=== PATIENT | male | born 1965 | race Caucasian/White ===

== ENCOUNTER 2019-09-20 22:01 | Observation (INO) | payer BC ==
[2019-09-20 22:33] LABS: Absolute Lymphocytes (CBC) 1.1 K/uL (0.7-4.9); Lymphocytes % 5.7 % (15.3-44.8)
[2019-09-20] MEDS ORDERED: MORPHINE 2 MG/ML SYR ONE (22:36)
[2019-09-20] MEDS ORDERED: ONDANSETRON 4 MG/2 ML VIAL ONE (22:36)
[2019-09-20] MEDS ORDERED: NA CHLORIDE 0.9% 1,000 ML ONE (22:37)
[2019-09-20 22:38] LABS: Basophils % 0.5 % (0-1.3); Hematocrit 44.6 % (39.6-49.0); MPV 8.3 fL (7.6-11.3); RBC Red Blood Cell Count 4.89 M/uL (4.33-5.43)
[2019-09-20 22:51] LABS: Albumin 4.4 g/dL (3.4-5.0); Bilirubin Direct 0.2 mg/dL (0-0.2); Bilirubin Total 0.8 mg/dL (0.2-1.0); Potassium 3.8 mmol/L (3.5-5.1); Protein, Total 8.1 g/dL (6.4-8.2)
[2019-09-21] MEDS ORDERED: PIPER/TAZO/NS 3.375gm 3.375 GM/100 ML BAG ONE (01:37)
[2019-09-21 02:07] LABS: Urine Blood TRACE (NEG); Urine Glucose NEGATIVE (NEG); Urine Protein NEGATIVE (NEG)
[2019-09-21 02:13] LABS: Urine Bacteria <20 /HPF (NONE SEEN); Urine Culture Reflex Order NOT NEEDED; Urine RBC <5 /HPF (NONE SEEN)
[2019-09-21] MEDS ORDERED: ACETAMINOPHEN 500 MG TAB PO PRN (02:16)
[2019-09-21] MEDS ORDERED: ONDANSETRON 4 MG/2 ML VIAL IV PRN (02:16)
[2019-09-21] MEDS ORDERED: ACETAMINOPHEN 500 MG TAB ONE (03:42)
[2019-09-21 03:43] VITALS: BMI 29.9
[2019-09-21] MEDS: D5 0.45 NS 1,000 ML IV SCH ×2 (04:23→17:53)
[2019-09-21 05:36] LABS: Protime INR 1.07
[2019-09-21] MEDS ORDERED: PIPERACIL/TAZO 3.375 GM VIAL IV ONE (06:30)
[2019-09-21] MEDS ORDERED: NA CHLORIDE 0.9% 100 ML ONE (06:32)
[2019-09-21] MEDS: MORPHINE 4 MG/ML SYR IV PRN ×2 (06:41→18:54)
[2019-09-21] MEDS ORDERED: PIPER/TAZO/NS 3.375gm 3.375 GM/100 ML BAG IVPB SCH (07:00)
[2019-09-21] MEDS ORDERED: Ringers Lactate 1,000 ML IV ONE ×2 (09:41→15:28)
[2019-09-21] MEDS ORDERED: FENTANYL CITR 100 MCG/2 ML ONE ×2 (10:40→14:47)
[2019-09-21] MEDS ORDERED: GLYCOPYRROLATE 0.2 MG/ML SYR ONE (10:41)
[2019-09-21] MEDS ORDERED: ONDANSETRON 4 MG/2 ML VIAL ONE ×2 (10:41→14:48)
[2019-09-21] MEDS ORDERED: propofoL 200 MG/20 ML VIAL IV ONE ×2 (10:41→14:47)
[2019-09-21] MEDS ORDERED: MIDAZOLAM HCL 2 MG/2 ML INJ ONE ×3 (10:41→14:47)
[2019-09-21] MEDS ORDERED: dexAMETHasone 4 MG/ML VIAL ONE (10:42)
[2019-09-21] MEDS ORDERED: ROCURONIUM 50 MG/5 ML VIAL IV ONE (10:42)
[2019-09-21] MEDS ORDERED: KETOROLAC 30 MG/ML INJ ONE (10:42)
[2019-09-21] MEDS ORDERED: NEOSTIGMINE 1 MG/ML -5 ML ONE (10:42)
[2019-09-21] MEDS ORDERED: LIDOCAINE 1% MPF 5 ML VIAL ONE ×2 (10:42→14:47)
[2019-09-21] MEDS ORDERED: MORPHINE 10 MG/ML VIAL ONE (11:25)
--- NOTE | 2019-09-21 11:28 | RAD REPORT ---
EXAM DESCRIPTION: Jaskaran Single View09/21/2019 2:32 am CLINICAL HISTORY: Abdominal pain COMPARISON: none FINDINGS: The lungs appear clear of acute infiltrate. The heart is normal size IMPRESSION: No acute abnormalities displayed
--- NOTE | 2019-09-21 12:38 | RAD REPORT ---
EXAM DESCRIPTION: CT - Abdomen Pelvis W Contrast - 09/21/2019 3:02 am CLINICAL HISTORY: The patient is 53 years old and is Male; RLQ abdomen pain TECHNIQUE: Axial computed tomography images of the abdomen and pelvis with intravenous contrast. S agittal and coronal reformatted images were created and reviewed. This CT exam was performed using one or more of the following dose reduction techniques: automated exposure control, adjustment of t he mA and/or kV according to patient size, and/or use of iterative reconstruction technique. DLP: 1679 mGy*cm COMPARISON: None. FINDINGS: LUNG BASES: Lung bases are clear. HEART: Visualized heart is normal. ABDOMEN: LIVER: Unremarkable. No mass. GALLBLADDER AND BILE DUCTS: Unremarkable. No calcified stones. No ductal dilation. PANCREAS: Unremarkable. No mass. No ductal dilation. SPLEEN: Unremarkable. No splenomegaly. ADRENALS: Unremarkable. No mass. KIDNEYS AND URETERS: Subcentimeter left renal hypodensities, too small to characterize by CT crite teddy. No hydronephrosis. STOMACH AND BOWEL: Enteric contrast in the stomach, small bowel and proximal large bowel. PELVIS: APPENDIX: Diffuse thickening of the appendix measuring up to 1.2 cm. Periappendiceal fat stranding is present. BLADDER: Unremarkable. No mass. REPRODUCTIVE: Unremarkable as visualized. ABDOMEN and PELVIS: INTRAPERITONEAL SPACE: No free air. No significant fluid collection. BONES/JOINTS: Small retrolisthesis of L4 on L5. No acute fracture. No dislocation. SOFT TISSUES: Fat-containing right inguinal hernia. Small fat-containing umbilical hernia. VASCULATURE: Trace scattered vascular calcifications. No abdominal aortic aneurysm. LYMPH NODES: Unremarkable. No enlarged lymph nodes. IMPRESSION: Acute appendicitis without perforation or abscess formation. THIS REPORT CONTAINS FINDINGS THAT MAY BE CRITICAL TO PATIENT'S CARE: The findings were verbally discussed via telephone conference with YADI DASILVA by Dr. Knowles on 1:26 AM CDT. The results were acknowledged and understood. Electronically signed by: Deven Knowles DO 09/21/2019 1:27 AM CDT Due to temporary technical issues with the PACS/Fluency reporting system, reports are being signed by the in house radiologist without review as a courtesy to ensure prompt reporting. The interpreting r adiologist is fully responsible for the content of the report.
--- NOTE | 2019-09-21 13:03 | P.BOP ---
Preoperative diagnosis: Acute appendicitis Postoperative diagnosis: same plus urinary retention Primary procedure: Laparoscopic appendectomy Estimated blood loss: <10cc Specimen: appendix Findings: urinary retention Anesthesia: General Complications: None Drain(s): SLIM drain Transferred to: Recovery Room Condition: Good
--- NOTE | 2019-09-21 14:05 | EKG ---
Test Date: 2019-09-21 Test Time: 01:52:05 Forklift Wheel Loader: RR MEASUREMENT RESULTS: Intervals: Rate: 93 DC: 198 QRSD: 162 QT: 384 QTc: 477 [place]: P: 61 DC: 198 QRS: 101 T: 0 INTERPRETIVE STATEMENTS: Normal sinus rhythm Rightward axis Left bundle branch block Abnormal ECG No previous ECG available for comparison Electronically Signed On 09-21-19 14:05:06 CDT by Kurtis Marlow
[2019-09-21] MEDS ORDERED: NA CHLORIDE 0.9% 1,000 ML ONE (14:20)
[2019-09-21] MEDS ORDERED: LIDOCAINE VISCOUS 2% SOLN 15 ML UDC ONE (14:32)
[2019-09-21] MEDS ORDERED: TAMSULOSIN 0.4 MG SR CAP PO SCH (15:00)
[2019-09-21] MEDS: PIPER/TAZO/NS 3.375gm 3.375 GM/100 ML BAG IVPB SCH (15:09)
[2019-09-21] MEDS ORDERED: LIDOCAINE 1% MPF 30 ML VIAL ONE (16:10)
--- NOTE | 2019-09-21 18:26 | RAD REPORT ---
EXAM DESCRIPTION: RAD - Fluoroscopy <1 Hour - 09/21/2019 5:46 pm CLINICAL HISTORY: Cystogram FINDINGS: Fluoroscopy time 7 seconds. Five fluoroscopic spot images obtained. Procedure performed by Dr. Ardon. Please refer to his report for findings A drain overlies the right abdomen/pelvis
--- NOTE | 2019-09-21 20:12 | CON ---
History Of Present Illness: A 53-year-old gentleman with a long history of decreased urinary flow, which sounds like a urethral stricture. He says there may have been some trauma there, he used to ride horses and so forth on motorcycles, but does not remember a specific incident. He had had some blood from the urethra before. He saw a urologist some 9 years ago and did a bladder ultrasound, but no invasive cystoscopy. He had an appendectomy done today emergently by Dr. Torres and had difficulty with the Stephenson catheter placement, so I was called. He was able to do the appendectomy without a Stephenson catheter. The bladder did appear to be full. He said, in recovery room he was unable to void. We checked a bladder ultrasound while he remained in the recovery room, he had about 700 mL. We tried a flexible cystoscopy, just saw some false passages in the bulbar urethra, does not see the urethra for sure, so we would take him back to do a cystoscopy, possible DVIU and Stephenson catheter placement. All the general information, alternatives, and risks were reviewed the because the patient has anesthesia. She has given permission to proceed. Past Medical History: Hypertension. Allergies: NO KNOWN DRUG ALLERGIES. Medications: For hypertension. Past Surgical History: Left hernia repair, appendectomy, and clavicle fracture surgery. Review of Systems: Noncontributory. Physical Examination: General: Patient was afebrile, stable. HEENT: Atraumatic, normocephalic. Lungs: Clear. Heart: Regular rate and rhythm. Abdomen: Soft, nontender. Has a dressing on the right lower quadrant area. Genitourinary: Phallus did show some blood at the meatus. The testicles well descended, benign. Extremities: Legs normal range of motion. Laboratory Data: White count 19.6, H and H 15 and 44, platelets 226. Coags normal. Chemistry; sodium 138, potassium 3.8, chloride 108, carbon dioxide 22, BUN 20, creatinine 1.3, GFR 59, glucose 167, calcium 9.5. Urine pretty much negative, pH 6.0. Assessment And Plan: Difficult catheter placement, some Stephenson trauma. Possible bulbar urethral stricture. The patient needs a formal cystoscopy, direct vision internal urethrotomy, and Stephenson placement. All the general information, alternatives, and risks were given to the , the spouse and we received informed consent from her to proceed. ANTONIO/JELENA Voice ID: [id number] Report ID: [id number] COLE
--- NOTE | 2019-09-21 20:51 | OP ---
Date of Procedure: 09/21/2019 Surgeon: Rivera Torres MD Preoperative Diagnosis: Acute appendicitis. Postoperative Diagnoses: Acute appendicitis plus urinary retention. Procedure: Laparoscopic appendectomy. Anesthesia: General plus local. Findings: Patient had acute appendicitis. The patient had some scar tissues at the left sigmoid are a region and once again we encouraged patient to have a colonoscopy whenever it is safe in the next f ew weeks and also we noticed that when the Stephenson has been inserted, the Stephenson does not pass the area of the prostate, we abort that area and decided to do the surgery without the Stephenson, but it still, at his age, have to be addressed. Once I put the cameras inside and looked at the bladder I noticed th e bladder have distended even though I noticed from the nurse in the recovery that he claimed that he went to urinate before, means that he had some urinary retention. We have a urologist in the area j ust doing some of the cases, we will ask him to take a look at him since the urinary retention may ef fect him in the future and he has to rule out any prostate issues. It is not related to the appendix , but it is a finding that we have now during diagnostic lap. I did not see any tumors from the area of the bladder inside and the trocars were away from the area of the bladder. Complications: None. Indications: This is the case of a 53-year-old patient who comes to us with an acute appendicitis. The benefits, alternatives, and risks of laparoscopic, possible open appendectomy were fully explaine d, which include but are not limited to infection, bleeding, damage to adjacent structures, anesthesi a complications, [place], and even . He also understands this may not relieve any symptoms, he might need more than one surgical intervention. He understood, signed the consent. Description Of Procedure: Patient was brought to the operating room, placed in supine position. Ane sthesia was done without complication. Abdominal area was prepped and draped in a sterile fashion. A Stephenson was attempted, but not done. That procedure was aborted, so we just prepped the abdomen in t he usual sterile fashion. We made an incision in the infraumbilical region after injecting with loca l anesthetic. An incision was carried down to the fascia, which was opened under direct vision. Per itoneum was encountered, opened under direct vision. Vicryl #1 placed inside the fascia. Arvind tro car was carefully introduced, no bleeding was obtained. I put the cameras inside, noticed that the a olvin of the pelvis shows acute appendicitis, also shows the patient had some adhesions in the sigmoid area, patient has no previous surgery there and also patient has distended bladder. No bleeding. At that moment, I proceeded to put a trocar in the suprapubic area under direct visualization above the area of the suprapubic area right between that and the periumbilical region to avoid any bleeding ne ar the bladder. I put another 5 mm trocar in the left lower quadrant once again under direct visuali zation. This allowed me to take a look at the area of the appendix, placed the patient in Trendelenb urg position. The base of the appendix seems to be spared from the inflammation, so we created a win alma delia in the base of the appendix, transected that with an Endo MONTRELL 45 mm 3.5, and the mesoappendix wit h the Endo-MONTRELL 45 mm 2.5. There was some inflammation around the appendix, I feel safer to leaving a SLIM drain over that region. So the SLIM drain was left there exiting to one of the trocar sites, secur ed in place with 3-0 nylon that would correct rest of the infection patient has in that area. At nicole t moment, I proceeded to inspect the area, no bowel leak, no bleeding. The area of the pelvis looks intact. Bladder is still distended, but no evidence of any leakage or any blood and the area of the sigmoid colon had some adhesions in that area, even though it looks soft, it should be looked at it t hrough the colonoscope. Patient tolerated the procedure well. The cameras were removed, peritoneum was removed, and the fascia was closed to #1 Vicryl. Irrigated subcutaneous tissues, closed that wit h 3-0 chromic and the skin was approximated with priscila and the SLIM drain was secured in place with 3 -0 nylon. Patient tolerated the procedure well. I discussed the case with Dr. Gallego, the urologist, and discussed the findings that we have in that area. The Stephenson was not inserted. He asked me to g priscilla the Flomax to this patient and also he is going to evaluate the patient. Depends if he urinated himself, then it is going to be elective, but something have to be checked in that area, so we know i t cannot be normally working, but at his age once again prostate enlargement may be one of the cause in the differential diagnosis. MARIA ANTONIA Voice ID: [id number] Report ID: [id number]
--- NOTE | 2019-09-21 21:57 | HP ---
Date of Admission: 09/21/2019 Reason For Service: Appendicitis. History Of Present Illness: This is a case of a 53-year-old patient, who comes to us complaining of right lower quadrant tenderness and tenderness for 1 day of duration. He denies any dysuria, hematur ia, hematochezia, or melena. He denies any trauma. He denies any recent travelling out of the [facility]. He denies any family member sick at home. Patient has not had a colonoscopy done, although he d id a Cologuard recently since he did not have time yet to do the colonoscopy, although he was explain ed the importance of screening colonoscopy. There is no other family member sick at home and there i s no recent traveling out of the country. Allergies: NONE. Medical Problems: Hypertension. Social History: He does not smoke. He does not drink alcohol. Family History: Noncontributory. Review of Systems: Ten points are otherwise unremarkable. Physical Examination: General: Patient is awake and alert. HEENT: Pupils are equal and reactive, anicteric. Neck: Supple. Chest: Clear. Abdomen: Right lower quadrant tenderness with Rovsing sign positive. Genitalia: Deferred. Rectal: Deferred. Extremities: Good capillary refill. Neurologic: Cranial nerves 2 through 12 grossly within normal limits. Laboratory Data: WBC count is 19.6 with hemoglobin of 15 and platelets of 226. INR is 1.07. Potass ium is 3.8, chloride is 108, glucose 167. CAT scan of abdomen and pelvis, official report is still p ending, although preliminary shows acute appendicitis by Dr. Deven Knowles. Assessment And Plan: This is a 53-year-old patient with acute appendicitis. The benefits, alternati ves, and risks of laparoscopic, possible open appendectomy were fully explained to the patient, which include but are not limited to infection, bleeding, damage to adjacent structures, anesthesia compli cation, [place], and even . He also understands this may not relieve his symptoms. He might need mo re than one surgical intervention. He understand also the importance of following up with his primar y doctor for his medical disease, also for his colonoscopy timing. BERONICA/JELENA Voice ID: [id number]
[2019-09-21] MEDS: HYDROCODONE/APAP 7.5/325 MG TAB PO PRN (22:57)
--- NOTE | 2019-09-21 23:12 | OP ---
Surgeon: Diamond Gallego MD Preoperative Diagnosis: Traumatic urethra, urethral stricture most likely. Postoperative Diagnosis: Traumatic urethra, urethral stricture most likely. Unable to find urethral lumen in the traumatic area, very inflamed and appears to be at 12 o'clock ar ea, but the guidewire would not go. Procedure: 1.Cystoscopy, clot evacuation from the urethra. 2.Suprapubic tube placement, Cook 14-Croatian placement tube. Complications: None. Indication: The pleasant 53-year-old gentleman, had an appendectomy. They were unable to pass the c atheter. The urethra got traumatized. I tried in the recovery room with a flexible scope, could not see anything. He was taken back to the OR for cysto DVIU. Clots were evacuated from the urethra. We could see false passage at 6 o'clock in the bulbar urethra. There was a hole at 12 o'clock that l ooks like urethral lumen, but the guidewire would not pass after several tries, so we decided to do a Cook banana type suprapubic 14-Croatian catheter. Description Of Procedure: The area was prepped and draped. Patient was placed in Trendelenburg posi tion. We first entered with lidocaine numbing to the skin and then lidocaine local anesthesia to the skin and then made an incision with a 15 blade knife. Patient bled kind of profusely from the skin for some reason. Also was bleeding from the urethral area for some reason, also was told he was blee ding from his incision from his laparoscopic surgery for some reason, possible on anticoagulation. N evertheless, we went ahead and did a spinal needle, tapped the bladder, got clear urine back. Then, we placed a suprapubic tube in the standard fashion once the trocar was placed in the tube to straigh ten it out and then the needle was passed through the suprapubic tube. The tube was placed in the bl adder with good return of urine. Once the needle was removed, we went ahead and made a coil on the t ube and lock it in place, placed the attachments to it, tube was then sewn in place using 2-0 Prolene suture and a pressure dressing was placed over the incision. There was normal bleeding seen once we were done, but nevertheless a pressure dressing was placed. The patient was awoken, went to the rec overy room in stable condition. PB/MODL Voice ID: [id number] Report ID: [id number]
[2019-09-22] MEDS: PIPER/TAZO/NS 3.375gm 3.375 GM/100 ML BAG IVPB SCH ×2 (00:02→07:59)
[2019-09-22] MEDS: D5 0.45 NS 1,000 ML IV SCH (00:07)
[2019-09-22 04:35] LABS: Absolute Lymphocytes (CBC) 1.2 K/uL (0.7-4.9); Basophils % 0.7 % (0-1.3); Hematocrit 37.5 % (39.6-49.0); Lymphocytes % 8.1 % (15.3-44.8); MPV 8.3 fL (7.6-11.3); RBC Red Blood Cell Count 4.05 M/uL (4.33-5.43)
[2019-09-22 04:49] LABS: Potassium 4.7 mmol/L (3.5-5.1)
[2019-09-22] MEDS: HYDROCODONE/APAP 7.5/325 MG TAB PO PRN ×2 (08:00→12:19)
[2019-09-22 09:32] VITALS: O2SAT 98
[2019-09-22] MEDS ORDERED: TAMSULOSIN 0.4 MG SR CAP PO SCH (12:54)
--- NOTE | 2019-09-22 14:09 | P.DS ---
Admission Date: 09/21/19 Discharge Date: 09/22/19 Disposition: ROUTINE DISCHARGE Discharge Condition: GOOD - Problems (1) Urethra disorder Current Visit: Yes Status: Acute (2) Appendicitis Current Visit: Yes Status: Acute Vital Signs/Physical Exam: Temp Pulse Resp BP Pulse Ox 97.8 F 74 18 118/66 97 09/22/19 08:00 09/22/19 08:00 09/22/19 13:14 09/22/19 08:00 09/22/19 13:14 General: Alert, Oriented x3, Cooperative HEENT: PERRLA, EOMI Neck: Supple Respiratory: Normal air movement Cardiovascular: No edema Gastrointestinal: Soft and benign Musculoskeletal: No erythema, No tenderness, No warmth Integumentary: No erythema, No warmth, No cyanosis Neurological: Normal speech Urinary: Kelly catheter Laboratory Data at Discharge: WBC 14.9 K/uL (4.3-10.9) H D 09/22/19 04:10 Hgb 12.5 g/dL (13.6-17.9) L D 09/22/19 04:10 Hct 37.5 % (39.6-49.0) L D 09/22/19 04:10 Plt Count 186 K/uL (152-406) 09/22/19 04:10 PT 12.6 SECONDS (9.5-12.5) H 09/21/19 05:16 INR 1.07 09/21/19 05:16 APTT 29.5 SECONDS (24.3-36.9) 09/21/19 05:16 Sodium 137 mmol/L (136-145) 09/22/19 04:10 Potassium 4.7 mmol/L (3.5-5.1) 09/22/19 04:10 BUN 12 mg/dL (7-18) 09/22/19 04:10 Creatinine 1.25 mg/dL (0.55-1.3) 09/22/19 04:10 Glucose 151 mg/dL (74-106) H 09/22/19 04:10 Total Bilirubin 0.8 mg/dL (0.2-1.0) 09/20/19 22:23 AST 12 U/L (15-37) L 09/20/19 22:23 ALT 35 U/L (12-78) 09/20/19 22:23 Alkaline Phosphatase 65 U/L (45-117) 09/20/19 22:23 Lipase 56 U/L (73-393) L 09/20/19 22:23 Home Medications: Amlodipine Besylate [Norvasc] 10 mg PO DAILY 09/21/19 Olmesartan Medoxomil [Benicar] 40 mg PO DAILY 09/21/19 Ciprofloxacin HCl [Cipro 500 MG Tablet] 500 mg PO BID #14 tab 09/22/19 Codeine/APAP [Tylenol W/Codeine #3 tab] 1 tab PO Q4HP PRN #30 tab 09/22/19 New Medications: Ciprofloxacin HCl [Cipro 500 MG Tablet] 500 mg PO BID #14 tab Codeine/APAP [Tylenol W/Codeine #3 tab] 1 tab PO Q4HP PRN #30 tab PRN Reason: Pain Patient Discharge Instructions: kelly per urologyst. Keep surgical area dry for 24h then may remove outer dressing and shower. Diet: AHA Activity: No lifting more than 10 lbs Followup: Diamond Gallego MD [ACTIVE - CAN ADMIT] - 1 Week Rivera Torres MD [ACTIVE - CAN ADMIT] -
[2019-09-22 14:30] VITALS: BP 126/63; TEMP 97.9
--- NOTE | 2019-09-22 18:27 | ER ---
Nurse's Notes [facility] Name: Hamzah Stoner III Age: 53 yrs Sex: Male : 1965 Arrival Date: 09/20/2019 Time: 22:03 Bed 5 Private MD: Diagnosis: Acute appendicitis Presentation: 09/19 22:09 Chief complaint: Patient states: Umbilical pain, lower abd pain for worsening today, sg denies N/V/D/Fever, reports having hx of umbilical hernia that was repaired in 2010 by a retired provider in [facility]. Coronavirus screen: Proceed with normal triage. Ebola Screen: Patient negative for fever greater than or equal to 101.5 degrees Fahrenheit, and additional compatible Ebola Virus Disease symptoms Patient denies exposure to infectious person. Patient denies travel to an Ebola-affected area in the 21 days before illness onset. No symptoms or risks identified at this time. Initial Sepsis Screen: Does the patient meet any 2 criteria? No. Patient's initial sepsis screen is negative. Does the patient have a suspected source of infection? No. Patient's initial sepsis screen is negative. Risk Assessment: Do you want to hurt yourself or someone else? Patient reports no desire to harm self or others. Onset of symptoms was September 20, 2019. Care prior to arrival: None. 22:09 Method Of Arrival: Ambulatory sg 22:09 Acuity: ELZA 3 sg Historical: - Allergies: 22:11 No Known Allergies; sg - PMHx: 22:11 Hypertension; sg - PSHx: 22:11 Hernia repair; sg - Immunization history:: Adult Immunizations up to date. - Social history:: Smoking status: Patient denies any tobacco usage or history of. Screenin:16 Abuse screen: Denies threats or abuse. Denies injuries from another. Nutritional rr5 screening: No deficits noted. Tuberculosis screening: No symptoms or risk factors identified. Fall Risk IV access (20 points). Total Mcdaniel Fall Scale indicates No Risk (0-24 pts). Assessment: 22:13 General: Appears in no apparent distress. uncomfortable, Behavior is calm, cooperative, rr5 appropriate for age. Pain: Complains of pain in right lower quadrant Pain radiates to right upper quadrant Pain currently is 8 out of 10 on a pain scale. Quality of pain is described as sharp, Pain began gradually, Is continuous. Neuro: Level of Consciousness is awake, alert, obeys commands, Oriented to person, place, time, situation, Appropriate for age. Cardiovascular: Capillary refill < 3 seconds Patient's skin is warm and dry. Respiratory: Airway is patent Respiratory effort is even, unlabored, Respiratory pattern is regular, symmetrical. GI: Abdomen is round non-distended, Reports lower abdominal pain, upper abdominal pain, nausea, Patient currently denies vomiting. : Denies pain. EENT: No signs and/or symptoms were reported regarding the EENT system. Derm: Skin is intact, is healthy with good turgor, Skin temperature is warm. Musculoskeletal: Circulation, motion, and sensation intact. Capillary refill < 3 seconds. 23:00 Reassessment: Patient appears in no apparent distress at this time. Patient is alert, rr5 oriented x 3, equal unlabored respirations, skin warm/dry/pink. oral contrast consumed. CT staff informed. 09/20 00:00 Reassessment: Patient appears in no apparent distress at this time. Patient and/or rr5 family updated on plan of care and expected duration. Pain level reassessed. Patient is alert, oriented x 3, equal unlabored respirations, skin warm/dry/pink. awaiting for CT procedure. 01:00 Reassessment: Patient appears in no apparent distress at this time. Patient and/or ls4 family updated on plan of care and expected duration. Pain level reassessed. Patient is alert, oriented x 3, equal unlabored respirations, skin warm/dry/pink. EKG DONE BY CUAUHTEMOC FLORENTINO. 02:00 Reassessment: Patient appears in no apparent distress at this time. Patient is alert, rr5 oriented x 3, equal unlabored respirations, skin warm/dry/pink. for admission diagnosis of appendicitis, awaiting for room assignment. 03:30 Reassessment: Patient appears in no apparent distress at this time. Patient is alert, rr5 oriented x 3, equal unlabored respirations, skin warm/dry/pink. resting eyes closed breathing spontaneously at room air. for transfer to room 215. Vital Signs: 09/19 22:09 Temp 98.5(TE); sg 22:14 BP 161 / 105; Pulse 95; Resp 17; Pulse Ox 99% ; Weight 92.53 kg; Height 5 ft. 9 in. rr5 (175.26 cm); Pain 8/10; 23:23 BP 148 / 91; Pulse 90; Resp 16; Pulse Ox 99% ; Pain 3/10; rr5 09/20 00:30 BP 149 / 88; Pulse 85; Resp 17; Pulse Ox 99% ; rr5 01:30 BP 141 / 75; Pulse 82; Resp 16; Pulse Ox 99% ; rr5 02:30 BP 135 / 75; Pulse 80; Resp 17; Temp 99.5; Pulse Ox 100% ; rr5 03:30 BP 136 / 88; Pulse 97; Resp 18; Temp 100.2; Pulse Ox 96% ; rr5 09/19 22:14 Body Mass Index 30.13 (92.53 kg, 175.26 cm) rr5 ED Course: 09/19 22:00 Arm band placed on right wrist. rr5 22:03 Patient arrived in ED. bp1 22:10 Triage completed. sg 22:11 tSephen Lopez PA is PHCP. cp 22:11 Jan Sumner MD is Attending Physician. cp 22:12 Cuauhtemoc Clark RN is Primary Nurse. rr5 22:15 Patient has correct armband on for positive identification. Bed in low position. Call rr5 light in reach. Pulse ox on. NIBP on. 22:15 Inserted saline lock: 18 gauge in right antecubital area, using aseptic technique. rr5 ,using aseptic technique. inserted by morenita FLORENTINO Blood collected. 09/20 01:15 CT Abd/Pelvis - PO and IV Contrast In Process Unspecified. EDMS 01:42 Rivera Torres MD is Hospitalizing Provider. cp 01:57 No provider procedures requiring assistance completed. ls4 02:32 XRAY Chest (1 view) In Process Unspecified. EDMS 03:30 Patient admitted, IV remains in place. intact, No redness/swelling at site. rr5 Administered Medications: 09/19 22:32 Drug: Zofran (Ondansetron) 4 mg Route: IVP; Site: right antecubital; rr5 23:30 Follow up: Response: No adverse reaction rr5 22:34 Drug: morphine 2 mg {Note: rass 0.} Route: IVP; Site: right antecubital; rr5 23:00 Follow up: Response: No adverse reaction; Marked relief of symptoms ls4 22:34 Drug: NS 0.9% 1000 ml Route: IV; Rate: 1000 ml/hr; Site: right antecubital; rr5 23:30 Follow up: Response: No adverse reaction; IV Status: Completed infusion; IV Intake: rr5 1000ml 23:37 Follow up: IV Status: Completed infusion; IV Intake: 1000ml [facility] 09/20 01:40 Drug: Zosyn 3.375 grams Route: IVPB; Infused Over: 60 mins; Site: right forearm; rr5 02:40 Follow up: Response: No adverse reaction; IV Status: Completed infusion; IV Intake: rr5 100ml Intake: 09/19 23:30 IV: 1000ml; Total: 1000ml. rr5 23:37 IV: 1000ml; Total: 2000ml. 4 09/20 02:00 PO: 0ml; Total: 2000ml. rr5 02:40 IV: 100ml; Total: 2100ml. rr5 Output: 02:00 Urine: 450ml (Voided); Total: 450ml. rr5 Outcome: 01:43 Decision to Hospitalize by Provider. cp 03:29 Admitted to Med/surg accompanied by surya, via stretcher, room 215, with chart, Report rr5 called to devyn 03:29 Condition: stable 03:29 Instructed on the need for admit. 03:38 Patient left the ED. rr5 Signatures: Dispatcher [employer] EDMS Juan Hercules, RN Stephen Gooden PA PA cp Stewart, Lisa, RN RN ls4 Cuauhtemoc Clark RN RN rr5 Kayli Leslie
--- NOTE | 2019-09-22 18:28 | EDPHYS ---
Physician Documentation [facility] Name: Hamzah Stoner III Age: 53 yrs Sex: Male : 1965 Arrival Date: 09/20/2019 Time: 22:03 Bed 5 Private MD: ED Physician Jan Sumner HPI: 09/19 22:30 This 53 yrs old Unknown Male presents to ER via Ambulatory with complaints of Nausea. cp 22:30 The patient presents to the emergency department with nausea, that is mild, abdominal cp pain, of the umbilical area and right lower quadrant, described as sharp, and does not radiate. Onset: The symptoms/episode began/occurred today. Possible causes: unknown. Associated signs and symptoms: Pertinent negatives: anorexia, constipation, diarrhea, dysuria, fever, GI bleeding, vomiting. Severity of symptoms: in the emergency department the symptoms are unchanged despite home interventions. Historical: - Allergies: 22:11 No Known Allergies; sg - PMHx: 22:11 Hypertension; sg - PSHx: 22:11 Hernia repair; sg - Immunization history:: Adult Immunizations up to date. - Social history:: Smoking status: Patient denies any tobacco usage or history of. ROS: 22:35 Constitutional: Negative for body aches, chills, fever, poor PO intake. cp 22:35 Eyes: Negative for injury, pain, redness, and discharge. cp 22:35 Cardiovascular: Negative for chest pain, palpitations. 22:35 Respiratory: Negative for cough, shortness of breath, wheezing. 22:35 Abdomen/GI: Positive for abdominal pain, nausea, Negative for vomiting, diarrhea, constipation, anorexia, black/tarry stool, rectal bleeding. 22:35 Back: Negative for radiated pain. 22:35 : Negative for urinary symptoms, flank pain, testicular pain 22:35 All other systems are negative. Exam: 22:40 Constitutional: The patient appears in no acute distress, alert, awake, cp non-diaphoretic, non-toxic, well developed, well nourished. 22:40 Head/Face: Normocephalic, atraumatic. cp 22:40 Eyes: Periorbital structures: appear normal, Conjunctiva: normal, no exudate, no injection, Sclera: no appreciated abnormality, Lids and lashes: appear normal, bilaterally. 22:40 ENT: External ear(s): are unremarkable, Nose: is normal, Mouth: is normal, Posterior pharynx: Airway: no evidence of obstruction, patent. 22:40 Chest/axilla: Inspection: normal, Palpation: is normal, no crepitus, no tenderness. 22:40 Cardiovascular: Rate: normal, Rhythm: regular. 22:40 Respiratory: the patient does not display signs of respiratory distress, Respirations: normal, no use of accessory muscles, no retractions, labored breathing, is not present, Breath sounds: are clear throughout, no decreased breath sounds, no stridor, no wheezing. 22:40 Abdomen/GI: Inspection: abdomen appears normal, Bowel sounds: active, all quadrants, Palpation: soft, in all quadrants, moderate abdominal tenderness, in the right lower quadrant, rebound tenderness, is not appreciated, voluntary guarding, is elicited in the right lower quadrant. 22:40 Skin: no rash present. 22:40 Neuro: Orientation: to person, place \T\ time. Mentation: is normal. 09/20 01:58 ECG was reviewed by the Attending Physician. cp Vital Signs: 09/19 22:09 Temp 98.5(TE); sg 22:14 BP 161 / 105; Pulse 95; Resp 17; Pulse Ox 99% ; Weight 92.53 kg; Height 5 ft. 9 in. rr5 (175.26 cm); Pain 8/10; 23:23 BP 148 / 91; Pulse 90; Resp 16; Pulse Ox 99% ; Pain 3/10; rr5 09/20 00:30 BP 149 / 88; Pulse 85; Resp 17; Pulse Ox 99% ; rr5 01:30 BP 141 / 75; Pulse 82; Resp 16; Pulse Ox 99% ; rr5 02:30 BP 135 / 75; Pulse 80; Resp 17; Temp 99.5; Pulse Ox 100% ; rr5 03:30 BP 136 / 88; Pulse 97; Resp 18; Temp 100.2; Pulse Ox 96% ; rr5 09/19 22:14 Body Mass Index 30.13 (92.53 kg, 175.26 cm) rr5 MDM: 09/19 22:22 Patient medically screened. cp 22:59 Differential diagnosis: cholecystitis, diverticulitis, appendicitis, bowel obstruction. 09/20 01:39 Data reviewed: vital signs, nurses notes, lab test result(s), radiologic studies, CT cp scan. Physician consultation: Rivera Torres MD was called at 01:35, was contacted at 01:35, regarding admission, to the medical/surgical unit. patient's condition. 09/19 22:16 Order name: Basic Metabolic Panel; Complete Time: 22:55 [facility] 09/19 22:55 Interpretation: Normal except: CL 108; GLUC 167; BUN 20; GFR 59. 09/19 22:16 Order name: CBC with Diff; Complete Time: 22:55 [facility] 09/19 22:56 Interpretation: Normal except: WBC 19.6; LIU% 83.9; LYM% 5.7; NEUT A 16.5; EOSA 0.6. 09/19 22:16 Order name: Hepatic Function; Complete Time: 22:55 [facility] 09/20 01:35 Interpretation: AST 12; GLOB 3.7. 09/19 22:16 Order name: Lipase; Complete Time: 22:55 [facility] 09/20 01:42 Order name: Urine Microscopic Only 09/20 02:05 Order name: Urine Dipstick--Ancillary (enter results) wv 09/20 02:21 Order name: Basic Metabolic Panel [facility] 09/20 02:21 Order name: Basic Metabolic Panel [facility] 09/20 02:21 Order name: CBC with Automated Diff [facility] 09/20 02:21 Order name: CBC with Automated Diff [facility] 09/20 02:21 Order name: Lipase [facility] 09/20 02:21 Order name: Lipase [facility] 09/20 02:21 Order name: Liver (Hepatic) Function [facility] 09/20 02:21 Order name: Liver (Hepatic) Function [facility] 09/19 22:16 Order name: IV Saline Lock; Complete Time: 22:16 [facility] 09/19 22:16 Order name: Labs collected and sent; Complete Time: 22:16 [facility] 09/19 22:27 Order name: CT Abd/Pelvis - PO and IV Contrast 09/20 01:38 Order name: NPO; Complete Time: 01:44 09/20 01:42 Order name: EKG; Complete Time: 01:43 09/20 01:42 Order name: EKG - Nurse/Tech; Complete Time: 01:55 09/20 01:42 Order name: XRAY Chest (1 view) 09/20 01:42 Order name: Urine Dipstick-Ancillary (obtain specimen); Complete Time: 02:05 cp 09/20 02:21 Order name: NPO EDKS 09/20 02:22 Order name: Protime (+INR) EDKS 09/20 02:22 Order name: PTT, Activated Partial Thromb EDMS EC:58 Rate is 93 beats/min. Rhythm is regular. CT interval is normal. QRS interval is cp prolonged at 162 msec. QT interval is normal. T waves are Inverted in lead aVR. Interpreted by me. Reviewed by me. Administered Medications: 09/19 22:32 Drug: Zofran (Ondansetron) 4 mg Route: IVP; Site: right antecubital; rr5 23:30 Follow up: Response: No adverse reaction rr5 22:34 Drug: morphine 2 mg {Note: rass 0.} Route: IVP; Site: right antecubital; rr5 23:00 Follow up: Response: No adverse reaction; Marked relief of symptoms ls4 22:34 Drug: NS 0.9% 1000 ml Route: IV; Rate: 1000 ml/hr; Site: right antecubital; rr5 23:30 Follow up: Response: No adverse reaction; IV Status: Completed infusion; IV Intake: rr5 1000ml 23:37 Follow up: IV Status: Completed infusion; IV Intake: 1000ml ls4 09/20 01:40 Drug: Zosyn 3.375 grams Route: IVPB; Infused Over: 60 mins; Site: right forearm; rr5 02:40 Follow up: Response: No adverse reaction; IV Status: Completed infusion; IV Intake: rr5 100ml Disposition: 07:12 Co-signature as Attending Physician, Jan Sumner MD. 7 Disposition: 09/21/19 01:43 Hospitalization ordered by Rivera Torres for Observation. Preliminary diagnosis is Acute appendicitis. - Bed requested for Telemetry/MedSurg (observation). - Status is Observation. rr5 - Condition is Stable. - Problem is new. - Symptoms have improved. Signatures: Dispatcher [employer] [facility] Juan Hercules RN RN Stephen Bennett PA PA cp Garcia, Cindy, RN RN Skip Clark RN RN rr5 Jan Sumner MD MD [facility] Roxana Howell RN ls4 Corrections: (The following items were deleted from the chart) 09/19 22:56 22:56 Normal except: WBC 19.6; LIU% 83.9; LYM% 5.7; NEUT A 16.5. cp 09/20 02:35 01:43 Hospitalization Ordered by Rivera Torres MD for Observation. Preliminary cg diagnosis is Acute appendicitis. Bed requested for Telemetry/MedSurg (observation). Status is Observation. Condition is Stable. Problem is new. Symptoms have improved. cp 03:38 02:35 09/21/2019 01:43 Hospitalization Ordered by Rivera Torres MD for Observation. rr5 Preliminary diagnosis is Acute appendicitis. Bed requested for Telemetry/MedSurg (observation). Status is Observation. Condition is Stable. Problem is new. Symptoms have improved. cg
== END 2019-09-22 15:45 | disposition home or self-care (01) ==
LOC: ER 22:01 → ERHOLD 09-21 02:29 → 2ND 09-21 03:27
PROVIDERS: ADMIT Surgery; ATTEND Surgery
PROC: 0TCD8ZZ Extirpation of Matter from Urethra, Via Natural or Artificial Opening Endoscopic (ICD-10-PCS; 2019-09-21)
PROC: 0T9B0ZZ Drainage of Bladder, Open Approach (ICD-10-PCS; 2019-09-21)
PROC: 0DTJ4ZZ Resection of Appendix, Percutaneous Endoscopic Approach (ICD-10-PCS; principal; 2019-09-21 12:00)
DX: K35.80 Unspecified acute appendicitis (principal); I10 Essential (primary) hypertension; R33.9 Retention of urine, unspecified; T84.89XA Other specified complication of internal orthopedic prosthetic devices, implants and grafts, initial encounter; R31.9 Hematuria, unspecified
CPT/HCPCS: 44970; 51040; 52001; 96365; 96361; 93005; 85025 ×2; 80048 ×2; 36415 ×2; 85610; 80076; 88304; 85730; 83690; 74177; 71045; 76000; 96375; 99285; Q9967; J2704 ×2; J2543 ×2; J2250 ×3; J3010 ×2; J2270; J2710; G0378 ×4; J7799 ×2; J7120 ×2; J7030 ×2; J2405 ×3; 81003; 81015